=== PATIENT | male | born 1945 | race Caucasian/White ===

== ENCOUNTER → 2020-05-22 05:50 | Outpatient (CLI) | payer MEDICARE, SELFPAY ==
--- NOTE | 2020-05-22 12:01 | STRESSREP ---
Stress Test Report 74-year-old man for preoperative cardiac evaluation. Stress protocol: Resting EKG demonstrates normal sinus rhythm with a rate of 61 bpm normal intervals are noted resting blood pressure is 180/100 mmHg. 0.4 mg of regadenoson was infused per usual protocol followed by Intravenous saline flush injection continuous EKG monitoring was performed. The maximum heart rate attained was 77 bpm which was 53% of max impacted heart rate the maximum workload was 1 metabolic equivalent. The peak blood pressure was 180/100 mmHg. At rest and during infusion there were nonspecific ST-T wave changes noted. Myocardial perfusion protocol. 14.9 mCi of technetium 99m sestamibi was injected at rest. 0.4 mg of regadenoson was infused per usual protocol at peak infusion 44.2 mCi of technetium 99m sestamibi was injected stress images were obtained stress and rest images were reconstructed and compared in the short axis vertical and horizontal long axis. Gated images were also obtained Perfusion SPECT analysis: Review of the stress images demonstrate normal perfusion noted in the septum anterior wall and lateral wall. There is a medium-sized defect noted in the mid inferior wall. On the resting images there is improvement in this wall suggestive of reversibility suggest ischemia. No previous infarct is noted. Gated SPECT analysis: The gated ejection fraction is 62%. Conclusion: Abnormal pharmacologic myocardial perfusion stress test with evidence of inferior ischemia moderate zone. Preserved ejection fraction.
== END ==
PROVIDERS: PCP Family Medicine; Referring Provider Family Medicine; Visit Provider Family Medicine
DX: I25.10 Atherosclerotic heart disease of native coronary artery without angina pectoris (principal); R06.02 Shortness of breath
CPT/HCPCS: 78452; 93017; A9500; A4216; J2785

== ENCOUNTER 2020-05-29 06:26 | Day surgery (SDC) | payer MEDICARE, SELFPAY ==
[2020-05-23 12:35] VITALS: BMI 31.4
[2020-05-23 14:10] VITALS: BMI 31.4
--- NOTE | 2020-05-29 07:18 | HP_ITS ---
HPI History of Present Illness Details: Pleasant 74-year-old man with no previous cardiac history who has had a history of hypertension, hyperlipidemia, obstructive lung disease and back surgery. He says that he has had some foot drop as well. He was seen for preoperative clearance for lumbar decompression surgery which was supposed to be done at [facility]. He had had a previous chest x-ray as well as CAT scan in the past which had demonstrated evidence of coronary calcifications. An echocardiogram done in 2019 demonstrated an ejection fraction of 60% with no wall motion abnormalities but mild mitral annular calcification noted. A stress test at that time was also noted to be normal. He has had no chest pain or shortness of breath or paroxysmal nocturnal dyspnea or pedal edema. He did undergo a pharmacologic myocardial perfusion stress test here in the hospital he was noted to be hypertensive and there was evidence of moderate inferior ischemia noted with preserved ejection fraction. He was therefore referred for further evaluation. His physical exam today is unremarkable his electrocardiogram demonstrates normal sinus rhythm with a rate of 59 bpm and no acute changes. Intake Vital Signs 05/23/20 Height 5 ft 11 in 05/23/20 Weight: 225 lb 05/23/20 BMI 31.4 05/23/20 BP 198/99 H 05/23/20 Respiration 18 05/23/20 Pulse 62 05/23/20 Pulse Oximetry (%) 94 Intake Visit Reasons: PCP ref'd for abn stress Allergies Iodine and Iodide Containing Produc Allergy (Verified 05/23/20 12:30) Unknown shellfish derived Allergy (Verified 05/23/20 12:30) Unknown Medications albuterol sulfate 90 mcg/actuation aerosol inhaler 2 puff INHALATION Q6H PRN 05/23/20 [History Confirmed 05/23/20] aspirin 81 mg tablet,delayed release 81 mg PO QDAY #60 tab 05/23/20 [Rx Confirmed 05/23/20] fluticasone fur. 100 mcg-umeclid 62.5 mcg-vilant 25 mcg inhalat.powder 1 inh INHALATION Q24H 05/23/20 [History Confirmed 05/23/20] guanfacine 2 mg tablet 2 mg PO QHS 05/23/20 [History Confirmed 05/23/20] hydrochlorothiazide 25 mg tablet 25 mg PO DAILY PRN 05/23/20 [History Confirmed 05/23/20] losartan 100 mg tablet 100 mg PO DAILY 05/23/20 [History Confirmed 05/23/20] metoprolol succinate 50 mg tablet,extended release 24 hr 50 mg PO DAILY 05/23/20 [History Confirmed 05/23/20] simvastatin 40 mg tablet 40 mg PO QHS 05/23/20 [History Confirmed 05/23/20] Ejection fraction %: 60 to 64 [facility] Medical History Atherosclerotic heart disease of [place] coronary artery without angina pectoris (Chronic) Essential (primary) hypertension (Chronic) Hyperlipidemia (Chronic) COPD (chronic obstructive pulmonary disease) (Chronic) Lumbar back pain with radiculopathy affecting lower extremity (Chronic) Right foot drop (Chronic) Surgical History History of cataract surgery (Resolved) History of elbow surgery (Resolved) Family History Brother CAD (coronary artery disease) stents Heart disease ICD Social History (Updated 05/23/20 @ 13:[address] Boni Meléndez MD) Smoking Status: Former smoker quit date: 04/14/84 pack-years: 15 ROS Const Const: Negative for fatigue, weakness, headache(s), frequent falls, difficulty sleeping or excessive sweating Eyes Eyes: Negative for loss of peripheral vision, transient loss of vision, blurry vision, double vision or tunnel vision ENT ENT: Negative for headache(s), dizziness, Nosebleed/epistaxis or balance problems Cardio Chest Pain: No Palpitations: No Edema: None Muscle aches with walking: None Resp Respiratory: Negative for SOB with activity, SOB at rest, SOB orthopnea\SOB lying down, Cough or paroxysmal nocturnal dyspnea GI GI: Negative nausea, vomiting, heartburn or black,tarry stools : Negative for hematuria Musc Musc: Positive for joint pain (Back pain radiating down left leg); negative for muscle aches/ myalgia, muscle weakness or balance problems Skin Skin: Negative non-healing lesions, rash or unusual bruising Neuro Neuro: Negative for dizziness, lightheadedness, near syncope, syncope, orthostatic symptoms, frequent falls, headache(s), weakness, blurry vision, double vision or lack of coordination Vinicius Hematologic/Lymphatic: Negative for easy bleeding or easy bruising Endo Endo: Negative for fatigue, excessive sweating or increased thirst/drinking Psych Psych: Negative for anxiety or depression Allergy Allergy/Immunology: Negative for hives, Negative for rash Cardiology Exam Const Appearance: cooperative, healthy appearing, no acute distress, well developed and well groomed Nutritional Appearance: average body habitus and well nourished Orientation: alert, awake and oriented x3 Head Head: normal to inspection, normocephalic and atraumatic Ears: hearing grossly normal bilaterally and external ears normal Nose: external nose normal, nares normal, nasal mucous membranes and turbinates normal, septum normal, no nasal discharge Face and Sinus: face symmetric Mouth: oral mucosae normal, tongue normal, oropharynx normal and moist mucous membranes Teeth and gingiva: dentition normal Throat: posterior oropharynx normal, tonsils normal and uvula midline Eyes General: appearance normal, both eyes and all related structures Eyelids: eyelids normal Conjunctivae: conjunctivae normal Pupils: PERRL, normal by confrontation and accommodation normal EOM: EOM intact bilaterally Neck Neck: normal visual inspection, trachea midline and no JVD JVD: +5 Carotids: normal carotid upstroke and bounding pulses Chest Chest inspection: normal inspection of the chest, symmetric chest movement and normal respiratory effort Auscultation: Bilateral: Clear to Auscultation Cardio Palpation: normal PMI Rate: regular rate Rhythm: regular rhythm Heart sounds: S1 normal, S2 normal and normal, physiologic split S2; negative rub, gallop or murmur GI GI: normal to inspection, soft, no hepatosplenomegaly and bowel sounds present Neuro General: alert, awake, oriented x3, gait normal, moves all extremities and no focal sensory deficit Skin Skin: no rashes or lesions noted Extremities Pulses: Normal: Right Femoral Pulse, Left Femoral Pulse, Right Dorsalis Pedis Pulse, Left Dorsalis Pedis Pulse, Right Posterior Tibial Pulse, Left Posterior Tibial Pulse, Right Radial Pulse, Left Radial Pulse Lower Extremity Edema: None: Bilateral Musculoskel Musculoskeletal: No joint tenderness Psych Psychological: normal affect Assessment & Plan 1. Abnormal nuclear stress test R94.39 Plan He does have evidence of abnormal stress test with inferior ischemia. After discussion with the patient and the extent of the coronary calcification noted on his CAT scan it is agreed upon that we should pursue a left heart catheterization. The risk benefits alternatives have been explained to him he understands and agrees to proceed. He would have prophylaxis with Benadryl and steroids due to his previous dye allergy. He will be started on a baby aspirin daily. Due to the fact that he has upcoming surgery and with his neurologic issues it may be prudent if he needs a stent to have a bare-metal stent placed. I would discuss this with endoscopy technican as appropriate. Orders Orders: Left Heart Cath/COR/LV Percut Today 2. Essential (primary) hypertension I10 Plan He tells me that his blood pressures at home have been normal. It has been hypertensive noted during his stress test. He says that this is whitecoat syndrome. We will address this after the procedure. In the meantime he will continue with his other current medications. 3. Hyperlipidemia E78.5 Plan He does have a history of hyperlipidemia and will remain on his current dose of statin. His blood work has previously been all reviewed and he has a normal renal and hepatic function as well as CBC. Plan Detail Other Medications New: aspirin (Adult Low Dose Aspirin) 81 mg PO QDAY 60 tabs 0RF Follow Up prn Coding Level of Care Code Off vis,new,level 4 Diagnoses Abnormal nuclear stress test R94.39 Essential (primary) hypertension I10 Hyperlipidemia E78.5 Coding Level of Care Code Off vis,new,level 4 Diagnoses Abnormal nuclear stress test R94.39 Essential (primary) hypertension I10 Hyperlipidemia E78.5 Supplemental Info Supplemental Information Diagnostics Stress Test Nuclear Medicine 05/22/20 Stress Test 05/22/20
--- NOTE | 2020-05-29 09:08 | CL.D_ITS ---
Patient Name: DONNY REMY Study Date: 05/29/2020 Performing: Boni Meléndez MD Ht: 70.86 inches 180 cm : 1945 Wt: 224.87 lbs 102 kg Age: 74 Gender: male BSA: 2.21 PROCEDURE(S) PERFORMED HE14-DIY/COR/LV CLINICAL PROFILE AND INDICATIONS Indications: Suspected CAD Heart Failure: None Stress/Imaging Date: 05/26/2020Stress Test with SPECT MPI: Positive Intermediate Risk CAD Presentations: No Sxs, no angina. CONCLUSIONS Moderate CAD involving the ramus intermedius, ostial left circumflex artery, and a high-grade stenosi s of the obtuse marginal branch. Omen-ss-zrmgc collaterals to a totally occluded right coronary patricia ry. RECOMMENDATIONS Based on the above angiographic findings would recommend medical therapy and for the patient to proce ed with the minimally invasive back surgery. We will follow-up in office. Aggressive treatment of b lood pressure recommended. DESCRIPTION OF PROCEDURE The patient arrived to the procedure lab. The risks and benefits of the procedure as well as a full d escription of our services here and current unavailability of surgical backup were fully explained to the patient and/or their significant other prior to the catheterization. The Timeout was completed, verifying the correct patient and procedure. The patient's procedural site was prepped and draped in the usual fashion. Local anesthetic was given subcutaneously to right radial region with Lidocaine 2% . Using a modified Seldinger technique, arterial access was obtained via the right radial artery, a 6 Fr sheath was inserted. Left Coronary Artery selective angiography was performed in multiple views u sing a 5 Fr. 4.0 Keller catheter. Right Coronary Artery selective angiography was then performed in mu ltiple views using a 5 Fr. 4.0 Keller catheter. Left Ventriculography was performed in VILLALBA projection using a 5 Fr. Pigtail catheter. LV to AO pullback pressures were then recorded.The arterial sheath was pulled and a TR Band was applied for hemostasis CORONARY ANGIOGRAPHY DOMINANCE: Right Dominant LEFT HEART ASSESSMENT Left Ventricular Ejection Fraction: by LV Gram 55 % Inferior Basal Hypokinesis - Mild Normal Left Ventricular systolic function LEFT MAIN: Moderate calcification LEFT ANTERIOR DESCENDING ARTERY: Moderate calcification, Mild luminal irregularities less than 30% CIRCUMFLEX ARTERY: PROX CIRC: Moderate luminal irregularities up to 50%, Moderate calcification OM 2: Proximal - long 90 % Stenosis RAMUS: Moderate calcification, Moderate luminal irregularities up to 50% RIGHT CORONARY ARTERY: OSTIAL RCA: is occluded COLLATERAL FLOW: Collateral flow from Left to Right COMPLICATIONS No Complications PROCEDURE MEDICATIONS Fentanyl 50 mcg IV Versed 1 mg IV Versed 1 mg IV Oxygen: 2 L/min via nasal cannula Benadryl 25 mg IV @ 05/29/2020 07:49:50 Solu-cortef 100 mg IV 05/29/2020 07:49:59 SUMMARY OF HEMODYNAMIC DATA Time AIR REST ECG 07:41:17 AO 226/103 (144) SA 08:00:52 AO 165/93 (120) 08:07:56 LV 201/18, 25 08:18:34 LV 205/21, 27 08:18:40 LV 182/20, 29 08:19:20 LVp 183/17, 23 08:19:24 AOp 207/103 (144) 08:19:29 AO 244/112 (155) 08:22:29 ECG 09:06:50 RM AIR REST 09:06:50 Signed By Boni Meléndez MD On 05/29/2020 09:07:04 Boni Meléndez MD
== END 2020-05-29 10:55 | disposition home or self-care (01) ==
PROVIDERS: PCP Family Medicine; Referring Provider Internal Medicine Cardiovascular Disease; Visit Provider Internal Medicine Cardiovascular Disease
DX: I25.10 Atherosclerotic heart disease of native coronary artery without angina pectoris (principal); I25.82 Chronic total occlusion of coronary artery; I10 Essential (primary) hypertension; E78.5 Hyperlipidemia, unspecified; J44.9 Chronic obstructive pulmonary disease, unspecified; M54.16 Radiculopathy, lumbar region; Z88.8 Allergy status to other drugs, medicaments and biological substances; Z79.82 Long term (current) use of aspirin; Z79.899 Other long term (current) drug therapy; Z87.891 Personal history of nicotine dependence
CPT/HCPCS: 93458; 99152; 99153; J7040; Q9967; C1769; C1894

== ENCOUNTER 2020-12-11 09:00 | Outpatient (RCR) | payer MEDICARE, SELFPAY ==
[2020-08-28 09:21] VITALS: BMI 31.1
[2020-12-11] MEDS: COVID-19 VACC, MRNA(PFIZER)/PF 30 MCG/0.3 ML SYRINGE IM (13:41)
[2021-01-01] MEDS: COVID-19 VACC, MRNA(PFIZER)/PF 30 MCG/0.3 ML SYRINGE IM (13:05)
== END 2021-03-17 23:59 ==
LOC: IMMUN 09:00
PROVIDERS: PCP Family Medicine; Visit Provider Family Medicine
DX: Z23 Encounter for immunization (principal)
CPT/HCPCS: 0001A; 0002A; 91300

== ENCOUNTER → 2021-12-11 | Outpatient (CLI) | payer MEDICARE, SELFPAY | END | disposition home or self-care (01) | PROVIDERS: PCP Family Medicine; Referring Provider Physician Assistant Medical; Visit Provider Physician Assistant Medical | DX: I49.9 Cardiac arrhythmia, unspecified (principal) | CPT/HCPCS: 93225; 93226 ==